=== PATIENT | male | born 1970 | race Caucasian/White ===

== ENCOUNTER → 2018-03-09 06:26 | Outpatient (CLI) | payer MEDICARE, BC, SELFPAY ==
--- NOTE | 2018-03-09 06:47 | MRI_ITS ---
STUDY: MRI LUMBAR SPINE WITHOUT CONTRAST REASON FOR EXAM: Male, 47 years old. acute on chronic low back pain x 1.5 mons radiates into L hip. TECHNIQUE: Standardized fat and water weighted pulse sequences were obtained in the sagittal and axial planes. COMPARISON: None FINDINGS: T12-L1: Normal endplates. Normal disc height, hydration and morphology. Normal bilateral facet joints. Normal central canal and bilateral lateral recesses. Normal bilateral intervertebral neural foramina. Normal lumbar lordosis. There is no substantial scoliosis. Normal conus medullaris that terminates at the L1 L1-2: Normal endplates. Normal disc height, hydration and morphology. Normal bilateral facet joints. Normal central canal and bilateral lateral recesses. Normal bilateral intervertebral neural foramina. L2-3: There is minimal disc space narrowing and endplate spondylosis. There is minimal disc bulging without significant central canal or foraminal stenosis. L3-4: There is minimal disc space narrowing and endplate spondylosis. There is a mild disc bulge, epidural lipomatosis and mild facet arthropathy with moderate central canal stenosis. There is minimal right and mild left foraminal stenosis. L4-5: There is mild disc space narrowing and endplate spondylosis. There is a moderate disc osteophyte complex asymmetric to the left with moderate left foraminal stenosis. There is facet arthropathy with moderate central canal and mild right foraminal stenosis. L5-S1: There is moderate disc space narrowing and endplate spondylosis. There is a disc osteophyte complex and facet arthropathy with mild central canal stenosis. There is right hemilaminotomy. There is moderate right and mild left foraminal stenosis. Normal visualized sacral ala. Normal visualized paraspinous soft tissue structures. MRI/Spine Lumbar (Routine) IMPRESSION: L3/L4: Moderate central canal stenosis. L4/L5: Moderate left foraminal stenosis. Moderate central canal stenosis. L5/S1: Moderate right foraminal stenosis. Electronically Signed: Zach Mckenzie MD at 8:51 EDT Tel , Service support ,
== END ==
PROVIDERS: Family Provider Internal Medicine; PCP Internal Medicine
DX: M51.06 Intervertebral disc disorders with myelopathy, lumbar region (principal); S33.9XXA Sprain of unspecified parts of lumbar spine and pelvis, initial encounter
CPT/HCPCS: 72148